=== PATIENT | female | born 1970 | race Caucasian/White ===

== ENCOUNTER 2017-03-01 09:14 | Emergency (ER) | payer OTHER ==
[2017-03-01 09:29] VITALS: BP 127/92; PULSE 79; RESP 18; TEMP 98.2; O2SAT 99
[2017-03-01] MEDS ORDERED: Oxycodone/Acetaminophen 5/325 mg Tab PO STA (10:12)
[2017-03-01] MEDS ORDERED: Oxycodone/Acetaminophen 5/325 mg Tab ONE (10:33)
--- NOTE | 2017-03-01 11:16 | ED PDOC ---
Upper Extremity Pain/Injury Time Seen by Provider: 03/01/17 09:47 Chief Complaint (Nursing): Upper Extremity Problem/Injury Chief Complaint (Provider): Upper Extremity Problem/Injury History Per: Patient History/Exam Limitations: no limitations Onset/Duration Of Symptoms: Days Current Symptoms Are (Timing): Still Present Additional Complaint(s): 46 y/o female presents to the emergency department with a complaint of right shoulder pain after hearing a crack yesterday, 02/28/2017. Reports taking an anxiety pill and went to sleep for the relief of symptoms; states nothing is working. Of note, patient previously had inflammation of 2 pockets within the right shoulder and had a US guided injection for pain about [address] Rico[address] Dr[address] Rico (Pain Management) [phone] Past Medical History Reviewed: Historical Data, Nursing Documentation, Vital Signs Vital Signs: Last Vital Signs Temp 98.2 F 03/01/17 09:28 Pulse 79 03/01/17 09:28 Resp 18 03/01/17 09:28 BP 127/92 H 03/01/17 09:28 Pulse Ox 99 03/01/17 09:28 - Medical History PMH: Bipolar Disorder - Family History Family History: States: Unknown Family Hx - Home Medications Home Medications: Ambulatory Orders Medication Instructions Recorded Diazepam [Valium] 5 mg PO Q8 PRN #10 tab 11/21/14 Codeine Phosphate/Promethazi 5 ml PO Q8 PRN #75 ml 04/17/15 [Promethazine with Codeine 10 mg/5 ml-6.25 mg/] Fluticasone Propionate [Flonase] 1 spr ADENIKE BID #1 bottle 04/17/15 Naproxen [Naprosyn] 500 mg PO BID PRN #15 tablet 03/01/17 - Allergies Allergies/Adverse Reactions: Allergies Allergy/AdvReac Type Severity Reaction Status Date / Time No Known Allergies Allergy Verified 11/21/14 09:57 Review of Systems ROS Statement: Except As Marked, All Systems Reviewed And Found Negative Musculoskeletal: Positive for: Shoulder Pain (Right ) Physical Exam - Reviewed Nursing Documentation Reviewed: Yes Vital Signs Reviewed: Yes - Physical Exam Appears: Positive for: Non-toxic, No Acute Distress Head Exam: Positive for: ATRAUMATIC, NORMOCEPHALIC Skin: Positive for: Normal Color, Warm, Dry Extremity: Positive for: Other (Sensation intact. 2+ pulses. 5/5 strength. ). Negative for: Normal ROM (Decreased range of motion interiorly of the right arm ; secondary to pain.), Deformity, Swelling Neurologic/Psych: Positive for: Alert, Oriented - ECG O2 Sat by Pulse Oximetry: 99 (RA) Pulse Ox Interpretation: Normal Medical Decision Making Medical Decision Making: Time: 9:47 Initial impression: Right shoulder pain Initial plan: --EXT Upper w/o contrast CT --ED Urine (POC) --Toradol 30 mg IM --Percocet 5/325 mg --revaluation Time: 12:[address] FINDINGS: BONES: Unremarkable. No fracture or focal lesion. Humeral head maintains normal contour. JOINT: Unremarkable. No dislocation. No degenerative changes. SOFT TISSUES: Unremarkable. IMPRESSION: Unremarkable CT of the right shoulder. Scribe Attestation: Documented by Maira Pierson, acting as a scribe for Nan Matute MD. Provider Scribe Attestation: All medical record entries made by the Scribe were at my direction and personally dictated by me. I have reviewed the chart and agree that the record accurately reflects my personal performance of the history, physical exam, medical decision making, and the department course for this patient. I have also personally directed, reviewed, and agree with the discharge instructions and disposition. Disposition - Clinical Impression Clinical Impression: Shoulder sprain - Disposition Disposition: Routine/Home Disposition Time: 12:43 Condition: IMPROVED Additional Instructions: FOLLOW-UP WITH YOUR PAIN MANAGEMENT DOCTOR FOR REEVALUATION. Prescriptions: Naproxen [Naprosyn] 500 mg PO BID PRN #15 tablet PRN Reason: Pain, Moderate (4-7) Instructions: Shoulder Sprain (ED)
--- NOTE | 2017-03-01 12:24 | CT ---
PROCEDURE: CT of the Right Shoulder. HISTORY: R shoulder injury, h/o bursitis COMPARISON: None available. TECHNIQUE: Contiguous axial images of the right shoulder were obtained. Coronal and sagittal reformats were generated. Radiation dose [address] exam was performed using one or more of the following dose reduction techniques: Automated exposure control, adjustment of the mA and/or kV according to patient size, and/or use of iterative reconstruction technique. FINDINGS: BONES: Unremarkable. No fracture or focal lesion. Humeral head maintains normal contour. JOINT: Unremarkable. No dislocation. No degenerative changes. SOFT TISSUES: Unremarkable. IMPRESSION: Unremarkable CT of the right shoulder.
== END 2017-03-01 13:12 | disposition home or self-care (01) ==
LOC: H.ER 09:14
DX: S43.401A Unspecified sprain of right shoulder joint, initial encounter (principal); X50.0XXA Overexertion from strenuous movement or load, initial encounter; Y92.9 Unspecified place or not applicable